=== PATIENT | female | born 1955 | race Caucasian/White ===

== ENCOUNTER → 2016-09-04 | Outpatient (CLI) | payer OTHER ==
[2016-09-04 12:32] LABS: BASO % 0.4 %; BASO ABS # 0.03 K/uL (0-0.2); COMPLETE YES; EOS % 1.3 %; HEMATOCRIT 42.8 % (37-47); IG% 0.1 %; LYMPH % 37.9 %; LYMPH ABS # 2.67 K/uL (1.2-3.4); MEAN CELL VOLUME 83.8 fL (80-100); MEAN CORPUSCULAR HGB CONC 33.4 g/dl (32-36); MEAN PLATELET VOLUME 10.6 fL (7.4-10.4); MONO % 6.4 %; NEUT % 53.9 %; PLATELET COUNT 248 K/uL (130-400); RED BLOOD COUNT 5.11 M/uL (4.2-5.4); WHITE BLOOD COUNT 7.04 K/uL (4.8-10.8)
[2016-09-04 15:01] LABS: ALKALINE PHOSPHATASE 87 U/L (45-117); ALT/SGPT 33 U/L (12-78); BLOOD UREA NITROGEN 13 mg/dl (7-18); BUN/CREATININE RATIO 14.5 (10-20); CALCIUM 9.1 mg/dl (8.5-10.1); CARBON DIOXIDE 25 mmol/L (21-32); CHLORIDE 108 mmol/L (98-107); CHOLESTEROL 243 mg/dl (0-200); CHOLESTEROL/HDL RATIO 6.6; CREATININE 0.89 mg/dl (0.60-1.20); GLUCOSE 82 mg/dl (70-99); HDL CHOLESTEROL 37 mg/dl; LDL CHOLESTEROL CALCULATED 170 mg/dl; POTASSIUM 3.6 mmol/L (3.5-5.1); SODIUM 144 mmol/L (136-145); TRIGLYCERIDES 178 mg/dl (0-150); VERY LOW DENSITY LIPOPROT CALC 36 mg/dl
[2016-09-04 15:02] LABS: AST/SGOT 19 U/L (15-37)
== END | disposition home or self-care (01) ==
LOC: C.LABBFT 07:38
PROVIDERS: ATTEND Internal Medicine
DX: I10 Essential (primary) hypertension (principal); E78.5 Hyperlipidemia, unspecified; R53.83 Other fatigue

== ENCOUNTER → 2018-02-04 | Outpatient (CLI) | payer OTHER ==
--- NOTE | 2018-02-05 07:30 | MAMMOGRAPHY REPORT ---
UNILATERAL RIGHT DIGITAL DIAGNOSTIC MAMMOGRAM TOMOSYNTHESIS AND RIGHT ULTRASOUND: 02/04/2018 CLINICAL HISTORY: Callback from screening mammography for a newly visualized 5 mm nodular asymmetry i n the inferior anterior right breast on the MLO view. TECHNIQUE: Spot compression right CC and MLO 2D and tomosynthesis images were obtained. COMPARISON: Comparison is made to exam dated: 01/15/2018 mammogram - [facility]. Ultrasound of the right breast was performed. BREAST COMPOSITION: There are scattered areas of fibroglandular density in right breast. FINDINGS: The spot compression MLO oval circumscribed 6 x 4 mm tomosynthesis views of the right josue st demonstrate a persistent nodular asymmetry versus mass in the inferior anterior breast (MLO tomosy nthesis slice 27/59. No corresponding abnormality is definitively seen on the spot compression cc vi ews in the medial and lateral breast however further evaluation with ultrasound was performed through out the inferior right breast. Targeted ultrasound performed in the inferior right breast demonstrates a circumscribed, gently lobul ated parallel hypoechoic solid versus cystic mass in the 5:00 to 4:00 right breast, 1 cm from the nip ple, measuring 4.7 x 2.2 x 2.8 mm. This may possibly correlate with the persistent nodular asymmetry versus mass seen on the spot compression MLO view but given the solid nature, definitive characteriz ation with an ultrasound-guided core biopsy is recommended. Correlation with postprocedure mammogram s is also recommended. IMPRESSION: ACR BI-RADS CATEGORY 4: SUSPICIOUS, ULTRASOUND ACR BI-RADS CATEGORY 4: SUSPICIOUS 1. There is a persistent 6 x 4 mm nodular asymmetry versus mass in the inferior anterior right breas t, only seen on the spot compression MLO tomosynthesis images, without corresponding abnormality defi nitely seen on the spot compression CC tomosynthesis images. 2. Possible sonographic correlate identified in the 4:00 to 5:00 right breast, 1 cm from the nipple measuring 4.7 mm. This sonographic lesion is indeterminate, given possible solid nature and right br east ultrasound-guided core needle biopsy is recommended. Correlation with postprocedure mammograms is also recommended to assess clip placement for mammographicsonographic correlation. These results and recommendations were discussed with the patient at the time of the exam. She tenta tively scheduled the procedure prior to leaving our department. Some breast cancers are not detected with mammography. A negative mammographic report should not cristina y biopsy if a clinically suggestive mass is present. Apolonia Zabala M.D. ay/:02/04/2018 12:35:35 Web Master: Courtney Crowley, [facility]; Apolonia Zabala, [facility] letter sent: Abnormal 4/ OVERALL STUDY BIRADS: 4 Suspicious abnormality
== END | disposition home or self-care (01) ==
LOC: C.MAMM 10:01
PROVIDERS: ATTEND Internal Medicine
DX: N64.89 Other specified disorders of breast (principal)